=== PATIENT | male | born 1965 | race African-American/Black ===

== ENCOUNTER 2017-05-17 07:00 | Inpatient (IN) | payer OTHER ==
[~2017-05-17] VITALS: Ht 172.7 cm; Wt 82.1 kg
--- NOTE | ~2017-05-17 | HP ---
Unit #: [id number] #: [id number] Patient: NKECHI CHESTER [id number] [place] [address] [id number] MR#: [id number] NAME: NKECHI CHESTER. ROOM: 73 Age: 52 Sex: M Admission Date: 05/17/2017 : 1965 Attending Physician: Mara Sal M.D. Admitting Physician: Mara Sal M.D. Primary Care Physician: Generic Doctor Not In System HISTORY AND PHYSICAL HISTORY OF PRESENT ILLNESS Nkechi is a 52 year old admitted to [facility] because of his abuse of alcohol. He is detoxing. PAST MEDICAL HISTORY 1. History of alcohol abuse. 2. Coronary artery disease. a. Angioplasty with stents. 3. Hyperlipidemia. 4. High blood pressure. PAST SURGICAL HISTORY Nothing reported. ALLERGIES No known drug allergies. SOCIAL HISTORY Smokes Black & Milds on occasion. Drinks at least a pint of whiskey on a daily basis. Denies illicit drug use. FAMILY HISTORY Medically noncontributory. REVIEW OF SYSTEMS CONSTITUTIONAL: No fever or chills. HEENT: Denies any sore throat, ear pain or runny nose. CARDIOVASCULAR: Denies chest pain, irregular heart rhythm or palpitations. CHEST: Denies shortness of breath or cough. No hemoptysis. GASTROINTESTINAL: Denies nausea, vomiting, diarrhea or chronic constipation. ENDOCRINE: Denies history of increased thirst or urination. No recent significant weight loss or gain. GENITOURINARY: Denies dysuria, frequency, or hematuria. SKIN: Denies any rashes. HEMATOLOGIC: Denies history of increased bleeding or bruising. MUSCULOSKELETAL: Denies any hot, swollen joints. No generalized muscle pain. NEUROLOGIC: Denies problems with vision or speech. No frequent, severe headaches. No numbness, tingling or weakness in any extremities. Denies loss of bladder or bowel control. Unit #: [id number] #: [id number] Patient: NKECHI CHESTER CURRENT MEDICATIONS 1. Detox protocol 2. Desyrel 100 mg q.h.s. 3. Lipitor 20 mg q.h.s. PHYSICAL EXAMINATION GENERAL: Alert, well-nourished, in no apparent distress. VITAL SIGNS: Blood pressure 170/100, heart rate 76, respirations 16, temperature 98.6. WEIGHT: 181. HEIGHT: 5 foot 8 inches. SKIN: Warm and dry without rash or lesion. HEENT: Normocephalic. TMs not viewed. Oral and nasal passages clear. Conjunctivae clear. Pupils equal, round and reactive to light and accommodation. Extraocular movements intact. NECK: Supple without lymphadenopathy or thyromegaly. HEART: Regular rate and rhythm without murmur. LUNGS: Clear. ABDOMEN: Soft, nontender. : Not done. EXTREMITIES: No evidence of cyanosis, clubbing or edema. Moves all extremities without focal deficit. NEUROLOGICAL: Grossly within normal limits. Cranial Nerves: II: Visual abdalla are intact. III, IV AND : Extraocular movements are intact. Pupils are equal, round and reactive to light. V: Facial sensation is grossly normal. VII: Facial movements and expression are normal. VIII: Auditory acuity grossly intact. IX, X: Uvula is midline. Phonation is normal. XI: Patient shrugs shoulders and turns head normally. XII: Tongue protrudes in the midline. Sensory and Motor Function: Sensory and motor sensation is grossly normal. Motor: moves all extremities well. Coordination: Gait is normal. Deep Tendon Reflexes: Intact. IMPRESSION Psychiatric admission. RECOMMENDATIONS PSYCHIATRIC: Per psychiatrist. MEDICAL: I see no contraindications to participating in facility's activities. MEDICAL PROGNOSIS Good. MEDICAL CONDITION Stable. Dictated by... Nohelia Roe P.A.-C. for Sushma Javier M.D. JDELPHINE/robyn Unit #: [id number] #: [id number] Patient: NKECHI CHESTER Carlos Enrique TD: 05/17/2017 23:07 JOB #: [id number] HISTORY AND PHYSICAL Page 1 of 1 X Nohelia Roe HISTORY AND PHYSICAL
--- NOTE | ~2017-05-17 | PN ---
Unit #: [id number] #: [id number] Patient: NKECHI CRUZ [id number] [facility] [address] [place] [address] [id number] I MR#: [id number] NAME: NKECHI CRUZ. ROOM: P173 Age: 52 Sex: M Admission Date: 05/17/2017 : 1965 Attending Physician: Mara Sal M.D. Admitting Physician: Mara Sal M.D. Primary Care Physician: Melissa Doctor Not In System [facility] [employer] PROGRESS NOTES DATE OF SERVICE 05/20/2017 DISCUSSION Mr. Cruz is a 52-year-old male who was seen today. Chart was reviewed and case was discussed with the staff. He remains, anxious, withdrawn, depressed, and seclusive to himself with a blunted affect and minimal interaction with persistent depressive symptom. Meanwhile, he has been taking the medications and tolerating them fairly well with no reported side effects. MENTAL STATUS EXAMINATION Middle-aged male who is casually dressed with fair personal hygiene and appears to be in no acute distress or discomfort. The patient was awake and alert with impaired attention and concentration. His mood is anxious and depressed with congruent affect. His speech is slow and restricted in content. He denies any current suicidal or homicidal ideations and also denies any auditory or visual hallucinations. His insight and judgment remain slightly impaired. TREATMENT PLAN 1. We will continue him on his current medications and treatment protocol. We will monitor his response and make further adjustments as needed. 2. We will continue to follow up. Dictated by... Mak Mendes/radha TD: 05/20/2017 09:46 JOB #: [id number] Unit #: [id number] #: [id number] Patient: NKECHI CRUZ [facility] PROGRESS NOTES Page 1 of 1 X Mara Sal MD PROGRESS NOTE
--- NOTE | ~2017-05-17 | PA ---
Unit #: [id number] #: [id number] Patient: NKECHI CRUZ [id number] [facility] [address] [place] [address] [id number] Ramesh MR#: [id number] NAME: NKECHI CRUZ ROOM: P173 Age: 52 Sex: M Admission Date: 05/17/2017 : 1965 Date of Assessment: 05/17/2017 Attending Physician: Mara Sal M.D. Admitting Physician: Mara Sal M.D. Primary Care Physician: Generic Doctor Not In System PSYCHIATRIC ASSESSMENT DATE OF SERVICE 05/17/2017. IDENTIFYING DATA Mr. Cruz is a 52-year-old male, who is a resident of [place], [place], and is known to us from previous encounter, and was self-referred to the hospital on a voluntary basis. CHIEF COMPLAINT "I don't care if I live or ." HISTORY OF PRESENT ILLNESS Mr. Cruz is a 52-year-old male with history of mood disorder and substance abuse, who was self-referred to the hospital and upon presentation, he stated "I don't care if I live or . I did 15 years straight in long term and let me out thinking that I would be okay and I was not allowed to work my way back into the community. I tried to get a job and do the right things and they look at my record and ask still if that happened about 22 years ago. I can't get a stance. I've been out about 14 months and every time I look up, I get the jobs and they look at my police report and tell me they no longer need me and I'm just fed up. I can't keep going through live like this. I lost all of my family members and I'm tired of living like this, most of my family is , all the other people. I can't even have a relationship because I can't keep a job and no one wants a man without a job and I just broke up with a girl because I couldn't keep a job. In the last 4 days, I've been on the streets and I'm going to pick that again up and whatever happens is what it is. I need to and today is my last day I'm crying and I paid my dues. I did 15 years in a cage, something got to give. Whenever they let me out here, I'm going to get a gun and I'm going to get me some money with it. I'm bipolar, one minute I'm okay and the next I'm not. I'm my drinking hard now. I drink all day every day and I drink vodka all day. I need help with that and that keeps me from being angry, it mellows me out. I've been drinking since I was 10 on and off and my whole family are alcoholics. If I don't get anything to drink, I'll start shaking on things and drink so much and people say that I'm going to kill myself, but I can't help it. I do feel suicidal like, I just want to go straight to the bridge or walk in front of a truck. I don't think I've the nerve to shoot myself and I don't sleep, maybe an hour a night, I drank all day." He does report increasing depression, anxiety, irritability, restlessness, feelings of hopelessness and helplessness, and suicidal ideation and as such, recommendation for inpatient level of care for safety and stabilization was made and the patient was stepped up to the inpatient Unit #: [id number] #: [id number] Patient: NKECHI CRUZ unit. SUBSTANCE ABUSE HISTORY The patient reports long history of alcohol dependence stating that he has been drinking since he was 10 years old and currently has been drinking up to a pint a day and denies any other substance abuse issues. PAST PSYCHIATRIC HISTORY The patient has not had any prior inpatient or outpatient psychiatric treatment. Review of the medical records indicate currently he is not active in any treatment program, is not seeing a psychiatrist, and is not taking any psychotropic medications. PAST MEDICAL HISTORY Hypertension, coronary artery disease, dyslipidemia. ALLERGIES No known medication allergies. CURRENT MEDICATIONS Losartan, aspirin, atorvastatin, metoprolol. PERSONAL AND SOCIAL HISTORY A 52-year-old male, who reports that he is single, unemployed, and essentially homeless and has poor social support system. MENTAL STATUS EXAMINATION Middle-aged male who was casually dressed with fair personal hygiene and appears to be in no acute distress or discomfort. He was awake and alert on interaction with intact orientation to time, place, and person. His mood was anxious and depressed with a congruent affect. His speech was slow and restricted in content. His thought processes were disorganized with some looseness of associations and flight of ideas and suicidal ideations. His insight and judgment remain significantly impaired. DIAGNOSTIC IMPRESSION Psychiatric: Major depressive disorder, recurrent, moderate, without psychotic features; alcohol dependence, moderate and acute withdrawals. Medical: Hypertension, coronary artery disease, dyslipidemia. Stressors: Moderate psychosocial stressors. TREATMENT PLAN 1. The patient has presented with a history of substance abuse and mood disorder, and has been decompensating and will need inpatient hospitalization for detoxification, safety, and stabilization. We will start him back on his home medications. We will adjust the medications and monitor response. 2. Supportive therapy was provided to the patient. 3. Safe, structured, and nourishing environment will be provided. ESTIMATED LENGTH OF STAY 4 to 5 days. ABILITY TO HELP SELF Limited. WILLINGNESS TO HELP SELF Unit #: [id number] #: [id number] Patient: NKECHI CRUZ The patient appears to be willing to help self. STRENGTHS 1. Communicative. 2. Cooperative. PROBLEMS 1. Chronic dysphoric symptoms. 2. Chronic chemical dependency. 3. Poor social support system. DISCHARGE CRITERIA This will be contingent upon the patient's ability to go through detox without having any significant withdrawal symptoms as well as his ability to stay safe to himself and others, particularly after discharge from the hospital. Dictated by... Mak Mendes/julia TD: 05/18/2017 07:03 JOB #: [id number] PSYCHIATRIC ASSESSMENT Page 1 of 1 X Mara Sal MD X PSYCHIATRIC ASSESSMENT
--- NOTE | ~2017-05-17 | DS ---
Unit #: [id number] #: [id number] Patient: NKECHI CHESTER [id number] [facility] SAMI ELLIOTT [address] [place] [address] [id number] I MR#: [id number] NAME: NKECHI CHESTER. ROOM: P173 Age: 52 Sex: M Admission Date: 05/17/2017 : 1965 Discharge Date: 05/22/2017 Attending Physician: Mara Sal M.D. Primary Care Physician: Generic Doctor Not In System DISCHARGE SUMMARY IDENTIFYING DATA Mr. Chester is a 52-year-old male, who is a resident of [place], [place] and transferred to us on a voluntary basis. HISTORY OF PRESENT ILLNESS Please see initial psychiatric evaluation for details. PAST PSYCHIATRIC HISTORY Please see initial psychiatric evaluation for details. PAST MEDICAL HISTORY Please see initial psychiatric evaluation for details. HOSPITAL COURSE The patient was admitted to the Adult Psychiatric Unit at [facility] sami Elliott and was oriented to the hospital environment. Routine p.r.n. medications were initiated and he was started back on his home medications, and medications were adjusted and he was closely monitored. He was taking the medications regularly and was tolerating them fairly well and able to come out of the detox without any complications, and was willing to continue treatment on an outpatient basis, and as such it was decided that he would be discharged home to continue treatment on an outpatient basis. DISCHARGE DIAGNOSES Psychiatric: Roscoe I Major depressive disorder, recurrent, moderate, without psychotic features. Alcohol dependence, moderate, and acute withdrawal. Roscoe II Roscoe III Hypertension. Coronary artery disease. Dyslipidemia. Roscoe IV Moderate psychosocial stressors. Roscoe V DISCHARGE MEDICATIONS Remeron 15 mg at bedtime for depression CONDITION AT DISCHARGE Stable. Unit #: [id number] #: [id number] Patient: NKECHI CHESTER LUCINA Pollock. Dictated by... Mak Mendes/shamika TD: 05/26/2017 05:34 JOB #: [id number] DISCHARGE SUMMARY Page 1 of 1 X Mara Sal MD DISCHARGE SUMMARY
--- NOTE | ~2017-05-17 | PN ---
Unit #: [id number] #: [id number] Patient: NKECHI CRUZ [id number] [facility] [address] [place] [address] [id number] MR#: [id number] NAME: NKECHI CRUZ. ROOM: P173 Age: 52 Sex: M Admission Date: 05/17/2017 : 1965 Attending Physician: Mara Sal M.D. Admitting Physician: Mara Sal M.D. Primary Care Physician: Meilssa Doctor Not In System [facility] PROGRESS NOTES DATE OF SERVICE 05/17/2017 DISCUSSION Mr. Cruz is a 52-year-old male with mood disorder who was seen today. Chart was reviewed and case was discussed with the staff. He was seen to be anxious, withdrawn, depressed, and rather seclusive to himself and has been compliant with treatment recommendations and tolerating them fairly well with no reported side effects. MENTAL STATUS EXAMINATION Middle-aged male who is casually dressed with fair personal hygiene, appears to be in no acute distress or discomfort. The patient was awake and alert on interaction with intact orientation. His mood is anxious with congruent affect. His speech is slow and goal-directed. He reports having suicidal ideations. Denies any homicidal ideations. His insight and judgment remain slightly impaired. TREATMENT PLAN 1. We will continue him on his current medications and treatment protocol. We will monitor his response to the medications and make further adjustments as needed. 2. We will continue to follow up. Dictated by... Mak Mendes/radha TD: 05/19/2017 10:30 JOB #: [id number] Unit #: [id number] #: [id number] Patient: NKECHI CRUZ [facility] PROGRESS NOTES Page 1 of 1 X Mara Sal MD PROGRESS NOTE
--- NOTE | ~2017-05-17 | PN ---
Unit #: [id number] #: [id number] Patient: NKECHI CRUZ [id number] [facility] [address] [place] [address] [id number] I MR#: [id number] NAME: NKECHI CRUZ. ROOM: P173 Age: 52 Sex: M Admission Date: 05/17/2017 : 1965 Attending Physician: Mara Sal M.D. Admitting Physician: Mara Sal M.D. Primary Care Physician: Melissa Doctor Not In System [facility] PROGRESS NOTES DATE 05/18/2017 DISCUSSION Mr. Cruz is a 52-year-old male with mood disorder who was seen today and chart was reviewed and case was discussed with the staff. He was seen to be anxious, withdrawn, depressed and rather seclusive to himself. Meanwhile, he has been cooperative with treatment recommendations and has been taking medications and tolerating them fairly well with no reported side effects. MENTAL STATUS EXAMINATION Middle-aged male who was casually dressed with fair personal hygiene and appears to be in no acute distress or discomfort. He was awake and alert on interaction with intact orientation. His mood was anxious and depressed with congruent affect. His speech is slow and goal-directed. He reports having suicidal ideations and also denies any auditory or visual hallucinations. His insight and judgement remains slightly impaired. TREATMENT PLAN 1. We will continue him on his current medications and treatment protocol. Will monitor his response to the medications and make further adjustments as needed. 2. Will continue to follow up. Dictated by... Mak Mendes/isaiah TD: 05/18/2017 22:12 JOB #: [id number] Unit #: [id number] #: [id number] Patient: NKECHI CRUZ [facility] PROGRESS NOTES Page 1 of 1 X Mara Sal MD PROGRESS NOTE
--- NOTE | ~2017-05-17 | PN ---
Unit #: [id number] #: [id number] Patient: NKECHI CRUZ [id number] [facility] [address] [place] [address] [id number] I MR#: [id number] NAME: NKECHI CRUZ. ROOM: P173 Age: 52 Sex: M Admission Date: 05/17/2017 : 1965 Attending Physician: Mara Sal M.D. Admitting Physician: Mara Sal M.D. Primary Care Physician: Melissa Doctor Not In System [facility] PROGRESS NOTES DATE May 21, 2017 DISCUSSION Mr. Cruz is a 52-year-old male, who was seen today and chart was reviewed and the case was discussed with the staff. He has been anxious, withdrawn, but has not shown any agitation, irritability, or behavioral problems. He has been cooperative with the treatment recommendations and he has been taking the medications and tolerating them fairly well with no reported side effects. MENTAL STATUS EXAMINATION Middle-aged male, who was casually dressed with fair personal hygiene and appears to be in no acute distress or discomfort. The patient was awake and alert on interaction with intact orientation. His mood was anxious with a congruent affect. The patient denies any suicidal or homicidal ideations. His insight and judgment remain slightly impaired. TREATMENT PLAN 1. We will continue him on his current medications and treatment protocol, and will monitor his response to the medications, and make further adjustments as needed. 2. We will continue to followup. Dictated by... Mak Mendes/shamika TD: 05/21/2017 08:19 JOB #: [id number] Unit #: [id number] #: [id number] Patient: NKECHI CRUZ [facility] PROGRESS NOTES Page 1 of 1 X Mara Sal MD PROGRESS NOTE
== END 2017-05-22 10:20 | disposition home or self-care (01) | DRG 885 ==
LOC: P1E 11:00 → POF 11:00 → P1E 12:01
PROC: HZ2ZZZZ Detoxification Services for Substance Abuse Treatment (ICD-10-PCS; principal; 2017-05-17)
DX: F33.1 Major depressive disorder, recurrent, moderate (principal); I10 Essential (primary) hypertension; F10.239 Alcohol dependence with withdrawal, unspecified; I25.10 Atherosclerotic heart disease of native coronary artery without angina pectoris; E78.5 Hyperlipidemia, unspecified
CPT/HCPCS: 86592; J1040